=== PATIENT | female | born 1995 | race Caucasian/White ===

== ENCOUNTER 2016-12-27 09:49 | Emergency (ER) | payer MEDICAID ==
[~2016-12-27] VITALS: Ht 154.9 cm; Wt 54.2 kg
[2016-12-27 11:54] VITALS: BP 117/87
== END 2016-12-27 11:54 | disposition home or self-care (01) ==
LOC: ED 09:49
DX: S16.1XXA Strain of muscle, fascia and tendon at neck level, initial encounter (principal); S09.90XA Unspecified injury of head, initial encounter; W22.8XXA Striking against or struck by other objects, initial encounter; Y93.89 Activity, other specified; Y92.89 Other specified places as the place of occurrence of the external cause; Y99.8 Other external cause status

== ENCOUNTER 2017-02-07 13:16 | Emergency (ER) | payer MEDICAID ==
[~2017-02-07] VITALS: Ht 154.9 cm; Wt 52.8 kg
[2017-02-07 16:40] VITALS: BP 98/53
== END 2017-02-07 16:40 | disposition home or self-care (01) ==
LOC: ED 13:16
DX: G43.909 Migraine, unspecified, not intractable, without status migrainosus (principal); J01.90 Acute sinusitis, unspecified
CPT/HCPCS: J0696; J1885; J2405; J3010

== ENCOUNTER 2017-05-30 10:46 | Emergency (ER) | payer MEDICAID ==
[~2017-05-30] VITALS: Ht 157.5 cm; Wt 49.6 kg
[2017-05-30 12:54] LABS: CALCIUM 9.4 mg/dL (8.5-10.1); CARBON DIOXIDE 27.4 mmol/L (21-32); CHLORIDE SERUM 104 mmol/L (98-107); CREATININE SERUM 0.7 mg/dL (0.6-1.0); GFR1 > 60 mL/min; GLUCOSE SERUM 93 mg/dL (74-106); POTASSIUM SERUM 4.3 mmol/L (3.5-5.1); SODIUM SERUM 138 mmol/L (136-145)
[2017-05-30 12:58] LABS: ALBUMIN 4.1 g/dL (3.4-5.0); ALKALINE PHOSPHATASE 62 U/L (46-116); ALT/SGPT 17 U/L (14-59); AST/SGOT 12 U/L (15-37); LIPASE 109 IU/L (73-393)
[2017-05-30 12:59] LABS: TOTAL PROTEIN, SERUM 8.3 g/dL (6.4-8.2)
[2017-05-30 13:47] VITALS: BP 103/72
== END 2017-05-30 13:47 | disposition home or self-care (01) ==
LOC: ED 10:46
PROVIDERS: Emergency Medicine
DX: R10.13 Epigastric pain (principal); R11.2 Nausea with vomiting, unspecified
CPT/HCPCS: 36415; J0500; Q0162

== ENCOUNTER 2017-08-02 19:47 | Inpatient (IN) | payer MEDICAID ==
[~2017-08-02] VITALS: Ht 157.5 cm; Wt 51.7 kg
[2017-08-02 21:14] LABS: BASOPHIL % 1.2 % (0-2); PLATELET COUNT 225 x10^3mcL (130-400); RED CELL DISTRIBUTION WIDTH 13.8 % (11.5-14.5)
[2017-08-02 21:22] LABS: CHLORIDE SERUM 104 mmol/L (98-107); CREATININE SERUM 0.8 mg/dL (0.6-1.0); GFR1 > 60 mL/min; GLUCOSE SERUM 89 mg/dL (74-106); POTASSIUM SERUM 3.7 mmol/L (3.5-5.1); SODIUM SERUM 140 mmol/L (136-145)
[2017-08-02 21:26] LABS: ALBUMIN 4.3 g/dL (3.4-5.0); ALKALINE PHOSPHATASE 52 U/L (46-116); AST/SGOT 10 U/L (15-37); BILIRUBIN TOTAL 0.3 mg/dL (0.20-1.00)
[2017-08-02 21:29] LABS: TOTAL PROTEIN, SERUM 8.4 g/dL (6.4-8.2)
[2017-08-02 22:19] LABS: ALT/SGPT 16 U/L (14-59)
[2017-08-02 23:14] LABS: AMPHETAMINE QUAL UR NONE DETECTED (NEG <=1000)
[2017-08-03 00:48] VITALS: BP 111/69
[2017-08-03 00:51] VITALS: Ht 157.5 cm; Wt 51.7 kg
[2017-08-03 01:42] LABS: microscopic required? NO
[2017-08-03 02:12] LABS: UA SPECIFIC GRAVITY 1.015 (1.005-1.035); urine erythrocyte NEGATIVE (NEGATIVE)
[2017-08-03 03:26] LABS: MAGNESIUM 2.3 mg/dL (1.8-2.4); PHOSPHOROUS 3.5 mg/dL (2.5-4.9)
[2017-08-03 03:28] LABS: CHOLESTEROL/HDL RATIO 2.3
[2017-08-03 03:34] LABS: T3 TOTAL 1.94 ng/mL
[2017-08-03 03:35] LABS: FREE T4 1.42 ng/dL (0.76-1.46); FREE THYROXINE INDEX 4.8 ug/dL (1.4-4.5)
[2017-08-03 06:21] VITALS: BP 106/64
[2017-08-03 07:29] LABS: BASOPHIL % 0.2 % (0-2); PLATELET COUNT 214 x10^3mcL (130-400); RED CELL DISTRIBUTION WIDTH 14.3 % (11.5-14.5)
[2017-08-03 07:46] LABS: CALCIUM 8.6 mg/dL (8.5-10.1); CARBON DIOXIDE 23.7 mmol/L (21-32); CHLORIDE SERUM 107 mmol/L (98-107); CREATININE SERUM 0.7 mg/dL (0.6-1.0); GFR1 > 60 mL/min; GLUCOSE SERUM 100 mg/dL (74-106); POTASSIUM SERUM 4.1 mmol/L (3.5-5.1); SODIUM SERUM 141 mmol/L (136-145)
[2017-08-03 09:12] VITALS: BP 100/51
[2017-08-03 12:48] VITALS: BP 105/54
[2017-08-03] MEDS ORDERED: CYCLOBENZAPRINE5 MG PO (16:31)
[2017-08-03] MEDS ORDERED: AMITRIPTYLINE H10 MG PO (16:35)
[2017-08-03] MEDS ORDERED: TREXIMET1 TAB PO (16:35)
[2017-08-03 16:47] VITALS: BP 105/54
== END 2017-08-03 17:21 | disposition home or self-care (01) | DRG 54 ==
LOC: ED 19:47 → DU 23:31
PROVIDERS: Emergency Medicine; Family Medicine
DX: G43.109 Migraine with aura, not intractable, without status migrainosus (principal); E05.90 Thyrotoxicosis, unspecified without thyrotoxic crisis or storm; R20.2 Paresthesia of skin; R59.0 Localized enlarged lymph nodes; E78.5 Hyperlipidemia, unspecified; Z68.20 Body mass index [BMI] 20.0-20.9, adult
CPT/HCPCS: 83880; 84439; 90658; J1100; J1885; J2270; J2405; J7030; J8597; Q0092

== ENCOUNTER 2019-03-04 17:50 | Emergency (ER) | payer MEDICAID ==
[~2019-03-04] VITALS: Ht 157.5 cm; Wt 54.4 kg
[~2019-03-04 17:50] MED LIST: AMITRIPTYLINE H10 MG PO; CYCLOBENZAPRINE5 MG PO; TREXIMET1 TAB PO
[2019-03-04 18:16] VITALS: Ht 157.5 cm; Wt 54.4 kg
[2019-03-04 20:25] VITALS: BP 114/50
== END 2019-03-04 20:25 | disposition home or self-care (01) ==
LOC: ED 17:50
DX: S63.501A Unspecified sprain of right wrist, initial encounter (principal); G43.909 Migraine, unspecified, not intractable, without status migrainosus; Z88.6 Allergy status to analgesic agent; W11.XXXA Fall on and from ladder, initial encounter; Y93.89 Activity, other specified; Y92.89 Other specified places as the place of occurrence of the external cause; Y99.8 Other external cause status